=== PATIENT | male | born 1990 | race Asian ===

== ENCOUNTER 2023-03-12 04:06 | Emergency (ER) | payer MEDICAID ==
[~2023-03-12] VITALS: Ht 182.9 cm; Wt 77.1 kg
[2023-03-12 05:45] VITALS: BP 131/81; TEMP 98.2; O2SAT 98
== END 2023-03-12 05:47 | disposition home or self-care (01) ==
LOC: ER 04:30
DX: G47.00 Insomnia, unspecified (principal)